=== PATIENT | male | born 2000 | race Caucasian/White ===

== ENCOUNTER 2018-10-12 11:31 | Emergency (ER) | payer OTHER, MEDICAID ==
[2018-10-12 11:40] VITALS: BP 152/84
--- NOTE | 2018-10-12 12:24 | ED Physician Documentation ---
PD HPI UPPER EXT INJURY - Stated complaint Stated Complaint: HAND INJURY - Chief complaint Chief Complaint: Ext Problem - History obtained from History obtained from: Patient, Family (Mother) - History of Present Illness Location: Right, Hand Type of injury: Blunt / blow Where injury occurred: Home Timing - onset: Yesterday - Additonal information Additional information: The patient is a 18-year-old male who accidentally banged the ulnar side of his right hand against an elliptical machine yesterday. He denies any other injuries. He is right-hand dominant. Review of Systems Skin: denies: Abrasion (s), Laceration (s) Musculoskeletal: reports: Extremity pain (right hand). denies: Neck pain Neurologic: denies: Focal weakness, Numbness PD PAST MEDICAL HISTORY - Past Surgical History Past Surgical History: No - Present Medications Home Medications: Ambulatory Orders Medication Instructions Recorded Confirmed Polymyxin B Sulf/Trimethoprim 2 drops RIGHTEYE Q3H 7 Days drops 12/03/13 [Polytrim Eye Drops] - Allergies Allergies/Adverse Reactions: Allergies Allergy/AdvReac Type Severity Reaction Status Date / Time amoxicillin [Amoxicillin] Allergy Unknown Verified 10/12/18 11:40 - Social History Does the pt smoke?: No Smoking Status: Never smoker - Immunizations Immunizations are current?: No Immunizations: Other immun not current PD ED PE NORMAL - Vitals Vital signs reviewed: Yes (hypertensive) - General General: Alert and oriented X 3, Well developed/nourished, Other - HEENT HEENT: Atraumatic - Respiratory Respiratory: No respiratory distress - Extremities Extremities: Other (There is tenderness to palpation at the ulnar aspect of the right hand. There is no appreciable swelling, and no break in the integument. Distal neurovascular is intact.) - Neuro Neuro: Alert and oriented X 3, No motor deficit, No sensory deficit Results - Vitals Vitals: Vital Signs - 24 hr 10/12/18 11:38 Temperature 36.4 C L Heart Rate 83 Respiratory 19 Rate Blood Pressure 152/84 H O2 Saturation 99 Oxygen O2 Source Room air - Rads (name of study) Right hand Radiology: Prelim report reviewed, EMP read contemporaneously, See rad report (Normal hand radiography.) PD MEDICAL DECISION MAKING - ED course Complexity details: reviewed results, re-evaluated patient, considered differential, d/w patient ED course: The patient's presentation is most consistent with contusion to the right hand. X-ray reveals no evidence of fracture or dislocation. I discussed with the patient and his mother the expected course of injury, symptomatic treatment and outpatient follow-up, as well as potentially worrisome signs or symptoms that should prompt reevaluation in the emergency department. Departure - Departure Disposition: 01 Home, Self Care Clinical Impression: Contusion of hand, right Qualifiers: Encounter type: initial encounter Qualified Code(s): S60.221A - Contusion of right hand, initial encounter Condition: Stable Instructions: ED Contusion Hand Comments: You can use ibuprofen, up to 800 mg 3 times daily for anti-inflammatory effect. Let pain be your guide to activity level. Follow-up with your primary physician or return to the emergency department if you develop increasing pain or swelling of your hand, or otherwise worsening symptoms. Discharge Date/Time: 10/12/18 13:05
--- NOTE | 2018-10-12 12:59 | XRAY Report ---
Reason: injury to ulnar side right hand Procedure Date: 10/12/2018 Accession Number: [id number] / [id number] Procedure: XR - Hand 3 View RT CPT Code: FULL RESULT: EXAM: RIGHT HAND RADIOGRAPHY EXAM DATE: 10/12/2018 12:40 PM. CLINICAL HISTORY: Right hand pain. COMPARISON: None. TECHNIQUE: 3 views. FINDINGS: Bones: Normal. No fractures or bone lesions. Joints: Normal. No subluxations. Soft Tissues: Normal. No soft tissue swelling. IMPRESSION: Normal hand radiography. RADIA
== END 2018-10-12 13:05 | disposition home or self-care (01) ==
LOC: ED 11:31
DX: S60.221A Contusion of right hand, initial encounter (principal); W22.09XA Striking against other stationary object, initial encounter; Y92.009 Unspecified place in unspecified non-institutional (private) residence as the place of occurrence of the external cause
CPT/HCPCS: 99282; 99283

== ENCOUNTER 2018-10-31 12:40 | Emergency (ER) | payer OTHER, MEDICAID ==
--- NOTE | 2018-10-31 14:04 | XRAY Report ---
Reason: fall on hip pain in troch and ishial tuber Procedure Date: 10/31/2018 Accession Number: [id number] / [id number] Procedure: XR - Hip w/Pelvis 2-3V RT CPT Code: FULL RESULT: EXAM: RIGHT HIP RADIOGRAPHY EXAM DATE: 10/31/2018 01:54 PM. CLINICAL HISTORY: Fall on hip pain in troch and ischial tuber. COMPARISON: None. TECHNIQUE: 2 views. FINDINGS: Bones: Normal. No fractures or bone lesion. Joints: Normal. No dislocation. The hip joint space is preserved. Soft Tissues: Normal. No soft tissue swelling. IMPRESSION: Normal hip radiography. RADIA
--- NOTE | 2018-10-31 14:09 | XRAY Report ---
Reason: pain over radial head Procedure Date: 10/31/2018 Accession Number: [id number] / [id number] Procedure: XR - Elbow 3 View RT CPT Code: FULL RESULT: EXAM: RIGHT ELBOW RADIOGRAPHY EXAM DATE: 10/31/2018 01:54 PM. CLINICAL HISTORY: Pain over radial head. COMPARISON: HAND 3 VIEW RT 10/12/2018 12:24 PM. TECHNIQUE: 3 views. FINDINGS: Bones: . No fractures or bone lesions. Joints: No effusion. No subluxation. Soft Tissues: No soft tissue swelling. IMPRESSION: Negative right elbow radiography. RADIA
--- NOTE | 2018-10-31 14:21 | ED Physician Documentation ---
PD HPI Fall - Stated complaint Stated Complaint: GLF/R WRIST/KNEE PX - Chief complaint Chief Complaint: Ext Problem - History obtained from History obtained from: Patient, Family - History of Present Illness Mechanism of injury: Slipped Fall distance: Standing position Where injury occurred: Home Timing - onset: Yesterday Injury(ies) location: Right Upper Extremity, Right Lower Extremity Quality of pain: Pain Associated symptoms: No: LOC, AMS, Amnesia Symptoms improve with: Rest Worsens with: Movement, Palpation Contributing factors: No: Anticoagulated Similar symptoms before: Diagnosis (sprain of wrist) Recently seen: Not recently seen - Additional information Additional information: 18-year-old male slipped and fell on a wet floor onto his right side. He complains of pain in the right shoulder right elbow right knee and right hip. He is having some limp when he walks secondary to the pain in his hip and buttocks. He does have some pain in his shoulder and elbow and he is able to move his arm up over his head. Review of Systems Constitutional: denies: Fever Ears: denies: Ear pain Nose: denies: Congestion Respiratory: denies: Cough GI: denies: Vomiting PD PAST MEDICAL HISTORY - Past Surgical History Past Surgical History: No - Present Medications Home Medications: Ambulatory Orders Medication Instructions Recorded Confirmed Polymyxin B Sulf/Trimethoprim 2 drops RIGHTEYE Q3H 7 Days drops 12/03/13 [Polytrim Eye Drops] - Allergies Allergies/Adverse Reactions: Allergies Allergy/AdvReac Type Severity Reaction Status Date / Time amoxicillin [Amoxicillin] Allergy Unknown Verified 10/12/18 11:40 Quinolones Allergy Rash Verified 10/31/18 12:53 - Social History Does the pt smoke?: No Smoking Status: Never smoker - Immunizations Immunizations are current?: No Immunizations: Other immun not current PD ED PE NORMAL - Vitals Vital signs reviewed: Yes (hypertensive ) - General General: Alert and oriented X 3, No acute distress, Well developed/nourished - HEENT HEENT: Atraumatic, PERRL, EOMI - Neck Neck: Supple, no meningeal sign, No bony TTP - Respiratory Respiratory: No respiratory distress - Derm Derm: Normal color, Warm and dry, No rash - Extremities Extremities: No deformity, No edema, Other (There is minimal tenderness to the right shoulder posteriorly. He is able to hold it in abduction and run it through a ROM without difficulty. There is pain over the radial head and with supination/pronation but not with flexion extension. There is no pain to palpation of the right wrist. The right knee is tender posteriorly minimally and the ligaments are stable to testing. There is not an obvious effusion. There is pain to the trochanter and to the ishial tuberosity. The gait favors the right leg at the hip. ) - Neuro Neuro: Alert and oriented X 3, managed care manager 2-12 intact, No motor deficit, No sensory deficit, Normal speech Eye Opening: Spontaneous Motor: Obeys Commands Verbal: Oriented GCS Score: 15 - Psych Psych: Normal mood, Normal affect Results - Vitals Vitals: Vital Signs - 24 hr 10/31/18 12:49 Temperature 36.8 C Heart Rate 83 Respiratory 18 Rate Blood Pressure 142/75 H O2 Saturation 99 Oxygen O2 Source Room air - Rads (name of study) hip Radiology: Prelim report reviewed (Impression: Normal hip radiography.), EMP read indepedently, See rad report elbow Right Radiology: Prelim report reviewed (Impression: Negative right elbow radiography.), EMP read indepedently, See rad report PD MEDICAL DECISION MAKING - ED course Complexity details: reviewed results, re-evaluated patient, considered differential, d/w patient, d/w family ED course: 18-year-old male with a fall yesterday has pain to the right side he has relatively benign physical examination and x-rays are without evidence of fracture. He is favoring his right hip area on ambulation and this is mild. He will not require splinting. Departure - Departure Disposition: 01 Home, Self Care Clinical Impression: Contusion of hip, right Qualifiers: Encounter type: initial encounter Qualified Code(s): S70.01XA - Contusion of right hip, initial encounter Contusion of elbow Qualifiers: Encounter type: initial encounter Laterality: right Qualified Code(s): S50.01XA - Contusion of right elbow, initial encounter Condition: Stable Instructions: ED Contusion Hip, ED Contusion Upper Ext Follow-Up: ASAEL URIBE MD [Primary Care Provider] -
[2018-10-31 14:28] VITALS: BP 129/73
== END 2018-10-31 14:26 | disposition home or self-care (01) ==
LOC: ED 12:40
DX: S70.01XA Contusion of right hip, initial encounter (principal); S50.01XA Contusion of right elbow, initial encounter; M25.511 Pain in right shoulder; M25.561 Pain in right knee; W01.0XXA Fall on same level from slipping, tripping and stumbling without subsequent striking against object, initial encounter; Y92.009 Unspecified place in unspecified non-institutional (private) residence as the place of occurrence of the external cause
CPT/HCPCS: 99282; 99284

== ENCOUNTER 2019-10-17 10:45 | Emergency (ER) | payer MEDICAID, OTHER ==
[2019-10-17 11:11] VITALS: BP 151/68
--- NOTE | 2019-10-17 11:31 | XRAY Report ---
PROCEDURE: Knee 4 View LT INDICATIONS: injury to left knee by boat crank TECHNIQUE: 4 views of the left knee(s) were acquired. COMPARISON: None. FINDINGS: Bones: No fractures or dislocations. No suspicious bony lesions. Soft tissues: No joint effusion. No suspicious soft tissue calcifications. IMPRESSION: No fracture. If the patient's pain or other symptoms persist, consider further evaluatio n with MRI. Reviewed by: Srikanth Doherty MD on 10/17/2019 11:30 AM PDT Approved by: Srikanth Doherty MD on 10/17/2019 11:30 AM PDT Station ID: [id number]
--- NOTE | 2019-10-17 12:10 | ED Physician Documentation ---
History of Present Illness - Stated complaint Stated Complaint: LT KNEE PX - Chief complaint Chief Complaint: Ext Problem - Additonal information Additional information: 19-year-old male here with left knee pain. Approximately 1 week ago he was hit in the lower thigh just above the knee with a boat crank that released suddenly. In the moment patient had sharp pain but then it went away. He did not develop pain in the area for approximately 3 days. He has a normal gait. He has had no swelling or ecchymosis. No history of previous injury to this knee or left leg Review of Systems Constitutional: denies: Fever, Chills Nose: denies: Congestion, Epistaxis Throat: denies: Oral lesions / sores, Sore throat Cardiac: denies: Chest pain / pressure, Palpitations, Pedal edema, Calf pain Respiratory: denies: Dyspnea, Cough GI: denies: Abdominal Pain, Abdominal Swelling, Nausea, Vomiting : denies: Dysuria Skin: denies: Rash, Abrasion (s) Musculoskeletal: reports: Joint pain. denies: Neck pain, Back pain, Joint swelling, Pain with weight bearing Neurologic: denies: Generalized weakness, Focal weakness, Numbness, Syncope, Seizure, Confused PD PAST MEDICAL HISTORY - Past Surgical History Past Surgical History: No - Present Medications Home Medications: Ambulatory Orders Medication Instructions Recorded Confirmed Ibuprofen [Motrin] 600 mg PO Q8H PRN #30 tab 10/17/19 - Allergies Allergies/Adverse Reactions: Allergies Allergy/AdvReac Type Severity Reaction Status Date / Time amoxicillin [Amoxicillin] Allergy Unknown Verified 10/17/19 11:00 Quinolones Allergy Rash Verified 10/17/19 11:00 ciprofloxacin [From Cipro] AdvReac Unknown Verified 10/17/19 11:01 - Social History Does the pt smoke?: No Smoking Status: Never smoker - Immunizations Immunizations are current?: No Immunizations: Other immun not current PD ED PE NORMAL - General General: Alert and oriented X 3, No acute distress, Well developed/nourished - Extremities Extremities: No deformity, Normal ROM s pain, No edema. No: No tenderness to palpate (mild tenderness just above knee at the patellar insertion point. no swelling, ecchymosis. no laxity. normal flexion/extension. no altered gait) Results - Vitals Vitals: Vital Signs - 24 hr 10/17/19 10:51 Temperature 36.9 C Heart Rate 99 Respiratory 18 Rate Blood Pressure 151/68 H O2 Saturation 97 Oxygen O2 Source Room air PD MEDICAL DECISION MAKING - ED course Complexity details: reviewed results, considered differential, d/w patient, d/w family ED course: 19-year-old male here for evaluation of just above the left knee at a point where he was hit by a boat crank nearly 1 week ago. On exam he has very mild tenderness just at the insertion point of the patella tendon. There is no laxity of the joint. There is no effusion. He has a normal gait. X-rays do not show any acute osseous injury. My suspicion favors contusion versus contusion of the tendon. Patient was given a 4 inch Reese wrap and reported improved pain control. I do recommend RICE precautions for the next 4 to 5 days. Follow-up with primary care doctor Departure - Departure Disposition: 01 Home, Self Care Clinical Impression: Left knee pain Qualifiers: Chronicity: acute Qualified Code(s): M25.562 - Pain in left knee Condition: Stable Record reviewed to determine appropriate education?: Yes Prescriptions: Ibuprofen [Motrin] 600 mg PO Q8H PRN #30 tab PRN Reason: Pain Comments: Chirag the x-ray of your knee is essentially normal. I suspect that you either bruised or contused the lower part of your muscle or tendon that inserts into the knee. At this time I would recommend that you wear the Reese wrap when you are out of bed for the next 4 to 5 days. I do also recommend a short course of an NSAID medication such as ibuprofen. I have prescribed this medication. Please return to the emergency department if you develop knee swelling, have knee redness, and inability to bear weight on the leg or you feel that your symptoms are not improved.
== END 2019-10-17 12:33 | disposition home or self-care (01) ==
LOC: ED 10:45
DX: M25.562 Pain in left knee (principal)
CPT/HCPCS: 99282; 99283

== ENCOUNTER 2019-12-06 12:54 | Outpatient (CLI) | payer MEDICAID ==
[2019-12-06] MEDS ORDERED: GADOBUTROL 10 MMOL/10 ML VIAL ONE (13:20)
--- NOTE | 2019-12-06 14:22 | MRI Report ---
PROCEDURE: Cervical Spine W/O INDICATIONS: INJURY OF PERIPHERAL NERVES OF NECK TECHNIQUE: Noncontrast sagittal T1 spin echo and T2 fast spin echo, sagittal STIR, foraminal oblique sagittal T2 fast spin echo, and axial gradient echo or T2 fast spin echo through the cervical spine. COMPARISON: None. FINDINGS: Image quality: Excellent. Alignment and Curvature: Normal cervical spine vertebral body height and alignment. Bone Marrow: No suspicious focal marrow signal abnormality or bone marrow edema. Spinal Cord: Normal morphology and signal intensity of the cervical cord. There is no syrinx. No infe rior cerebellar tonsillar herniation. Regional Soft Tissues: Prevertebral and paraspinous tissues are unremarkable. C2-C3: Normal in appearance. C3-C4: Normal in appearance. C4-C5: Normal in appearance. C5-C6: Normal in appearance. C6-C7: Normal in appearance. C7-T1: Normal in appearance. IMPRESSION: Normal MRI of the cervical spine. No spinal canal stenosis, neural foraminal stenosis, degenerative c hanges, or cord signal abnormality. Reviewed by: Chris Weston MD on 12/06/2019 2:20 PM PDT Approved by: Chris Weston MD on 12/06/2019 2:20 PM PDT Station ID: [id number]
== END 2019-12-06 12:55 | disposition home or self-care (01) ==
LOC: DI 12:54
PROVIDERS: ATTEND Nurse Practitioner Family
DX: S19.9XXA Unspecified injury of neck, initial encounter (principal)
CPT/HCPCS: 72141

== ENCOUNTER → 2020-03-27 | Outpatient (CLI) | payer MEDICAID ==
[2020-03-27 11:28] LABS: ALBUMIN 4.6 g/dL (3.2-5.5); ALBUMIN/GLOBULIN RATIO 1.4 (1.0-2.2); ALKALINE PHOSPHATASE 82 IU/L (42-121); ALT ALANINE AMINOTRANSFERASE 30 IU/L (10-60); AST ASPARTATE AMINOTRANSFERASE 22 IU/L (10-42); BILIRUBIN,TOTAL 0.9 mg/dL (0.2-1.0); BUN - BLOOD UREA NITROGEN 11 mg/dL (6-20); CALCIUM 10.2 mg/dL (8.5-10.3); CARBON DIOXIDE - CO2 27 mmol/L (21-32); CHLORIDE 100 mmol/L (101-111); CHOL/HDL RATIO 3.4 (<5.0); CHOLESTEROL 164 mg/dL; CREATININE 0.8 mg/dL (0.6-1.2); GLUCOSE 97 mg/dL (70-100); HDL CHOLESTEROL 48 mg/dL; LDL CHOLESTEROL,CALCULATED 99 mg/dL; LDL/HDL RATIO 2.1 (<3.6); TOTAL PROTEIN 7.9 g/dL (6.7-8.2); VLDL CHOLESTEROL 17 mg/dL
== END ==
LOC: LAB 08:00
PROVIDERS: ATTEND Nurse Practitioner Family
DX: R10.13 Epigastric pain (principal); E66.09 Other obesity due to excess calories
CPT/HCPCS: 36415; 80053; 80061; 83721

== ENCOUNTER 2020-06-05 11:37 | Emergency (ER) | payer OTHER, MEDICAID ==
[2020-06-05] MEDS ORDERED: IBUPROFEN 600 MG TABLET PO STA (12:02)
--- NOTE | 2020-06-05 12:04 | ED Physician Documentation ---
History of Present Illness - Stated complaint Stated Complaint: BACK PX - Chief complaint Chief Complaint: Back Pain - Additonal information Additional information: 20-year-old male presents the emergency department for evaluation of low back pain. 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 He does not remember any inciting event at work but this morning when he woke up and moved he had a lot of pain in the lower back. He reports pain was so bad that he vomited. He has no fevers, no saddle anesthesia. No history of cancer or injection drug use or previous spinal instrumentation. He has not taken anything for pain. Here in the emergency department he appears well and has a normal gait. Review of Systems Constitutional: denies: Fever, Chills Eyes: reports: Reviewed and negative Ears: reports: Reviewed and negative Nose: reports: Reviewed and negative Throat: reports: Reviewed and negative Cardiac: reports: Reviewed and negative Respiratory: reports: Reviewed and negative GI: reports: Vomiting. denies: Abdominal Pain, Abdominal Swelling, Nausea : reports: Reviewed and negative Skin: reports: Reviewed and negative Musculoskeletal: reports: Back pain Neurologic: reports: Reviewed and negative Psychiatric: reports: Reviewed and negative PD PAST MEDICAL HISTORY - Past Surgical History Past Surgical History: No - Present Medications Home Medications: Ambulatory Orders Medication Instructions Recorded Confirmed Ibuprofen [Motrin] 600 mg PO Q6H PRN #30 tab 06/05/20 - Allergies Allergies/Adverse Reactions: Allergies Allergy/AdvReac Type Severity Reaction Status Date / Time amoxicillin [Amoxicillin] Allergy Unknown Verified 06/05/20 11:46 Quinolones Allergy Rash Verified 06/05/20 11:46 ciprofloxacin [From Cipro] AdvReac Unknown Verified 06/05/20 11:46 - Social History Does the pt smoke?: No Smoking Status: Never smoker - Immunizations Immunizations are current?: No Immunizations: Other immun not current PD ED PE EXPANDED - General General: Alert, No acute distress, Well developed/nourished - Back Back: Soft tissue tenderness. No: Vertebral tenderness, Straight leg raise + R, Straight leg raise + L (Bilateral lower paraspinous tenderness to palpation without palpable spasm. No swelling or erythema. Full range of motion of lower lumbar spine. Normal gait. motor strength 5/5 BLE. able to walk on heels and toes) Results - Vitals Vitals: Vital Signs - 24 hr 06/05/20 11:43 Temperature 36.7 C Heart Rate 58 L Respiratory 16 Rate Blood Pressure 159/82 H O2 Saturation 98 Oxygen O2 Source Room air PD MEDICAL DECISION MAKING - ED course Complexity details: reviewed results, re-evaluated patient, d/w patient, d/w family ED course: 20-year-old male who has a history of autism presents emergency department with lower lumbar pain after carrying heavy boxes in janitorial supplies up and down stairs yesterday afternoon. He has no red flags. On exam he is mildly tender in bilateral lower lumbar spinous muscles. He has normal gait and full lower lumbar range of motion. I do recommend NSAID medication. I have filled out the activity prescription form and the appropriate labor and industries paperwork was also completed. Patient is recommended to follow-up with the [facility] for full return to duty evaluation Departure - Departure Disposition: 01 Home, Self Care Clinical Impression: Acute lumbar myofascial strain Qualifiers: Encounter type: initial encounter Qualified Code(s): S39.012A - Strain of muscle, fascia and tendon of lower back, initial encounter Condition: Stable Record reviewed to determine appropriate education?: Yes Instructions: ED Sprain Strain Lumbar Follow-Up: [facility] [Provider Group] Prescriptions: Ibuprofen [Motrin] 600 mg PO Q6H PRN #30 tab PRN Reason: Pain Comments: Chirag was seen in the emergency department today for evaluation of low back pain after carrying heavy supplies up and down stairs yesterday afternoon. As we discussed I suspect that he has strain or sprain of the lower lumbar muscles. Would like him to take the ibuprofen with food 2-3 times a day for the next 4 to 5 days. I have written for a modified duty prescription that limits his lifting to no more than 5 pounds until he is pain-free. I would like him to follow-up with [facility] within 1 week for full return to duty prescription form. If at any point he has suddenly severe or different pain, loses control of bowel or bladder function I feel the symptoms are not improving please return to the emergency department for a second evaluation.
[2020-06-05 12:43] VITALS: BP 143/75
== END 2020-06-05 12:49 | disposition home or self-care (01) ==
LOC: ED 11:37
DX: S39.012A Strain of muscle, fascia and tendon of lower back, initial encounter (principal); X50.0XXA Overexertion from strenuous movement or load, initial encounter; Y93.89 Activity, other specified; Y99.0 Civilian activity done for income or pay
CPT/HCPCS: 1040M; 99282; 99283; A9270

== ENCOUNTER 2020-06-10 15:05 | Emergency (ER) | payer OTHER, MEDICAID ==
--- OUTSIDE RECORDS SUMMARY | 2020-06-10 15:08 | EXTERNAL MEDICAL SUMMARY RPT | Continuity of Care Document ---
:2000 Demographics Phone Unavailable Preferred Language Unknown Marital Status Unknown Jewish Affiliation Unknown Race Unknown Ethnic Group Unknown Author Organization [facility] Address [address] [place] [address] Phone Social History date description facility [id number]
[2020-06-10] MEDS ORDERED: DEXAMETHASONE 10 MG/ML VIAL PO STA (15:39)
--- NOTE | 2020-06-10 15:44 | ED Physician Documentation ---
PD HPI BACK PAIN - Stated complaint Stated Complaint: BACK PX - Chief complaint Chief Complaint: Back Pain - History obtained from History obtained from: Patient - History of Present Illness Timing - onset: How many days ago (3) Timing - duration: Days (3) Timing - details: Gradual onset Pain level max: 1 Pain level now: 1 Location: Lower Associated symptoms: No: Fever, Weakness, Numbness, Incontinent of urine, Unable to urinate, Hematuria, Incontinent of stool Improves with: Rest Worsened by: Other (standing) Contributing factors: No: Trauma, Anticoagulated, Cancer, IVDA Recently seen: Emergency Dept - Additional information Additional information: Patient is a 20-year-old male who injured his back 3 days ago. He states that now when he stands up he gets a tingling sensation in his back. Rates the pain as a 1 out of 10. He states that he strained his back lifting at work. Better with rest, worse with standing. No IV drug use. No trauma. No cancer. Not anticoagulated. Recently seen in the emergency department after the initial injury. Review of Systems Constitutional: denies: Fever, Chills Respiratory: denies: Cough GI: denies: Vomiting : denies: Incontinent Skin: denies: Rash Musculoskeletal: denies: Neck pain Neurologic: denies: Focal weakness, Numbness PD PAST MEDICAL HISTORY - Past Medical History Past Medical History: Yes Cardiovascular: None Respiratory: None Neuro: Head injury Endocrine/Autoimmune: None GI: None : None HEENT: None Psych: None Musculoskeletal: None Derm: None - Past Surgical History Past Surgical History: No - Present Medications Home Medications: Ambulatory Orders Medication Instructions Recorded Confirmed Methylprednisolone [Medrol] 4 mg PO DAILY #1 06/10/20 - Allergies Allergies/Adverse Reactions: Allergies Allergy/AdvReac Type Severity Reaction Status Date / Time amoxicillin [Amoxicillin] Allergy Unknown Verified 06/10/20 15:07 Quinolones Allergy Rash Verified 06/10/20 15:07 ciprofloxacin [From Cipro] AdvReac Unknown Verified 06/10/20 15:07 - Social History Does the pt smoke?: No Smoking Status: Never smoker Does the pt drink ETOH?: Yes Does the pt have substance abuse?: No - Immunizations Immunizations are current?: No Immunizations: Other immun not current PD ED PE NORMAL - Vitals Vital signs reviewed: Yes - General General: Alert and oriented X 3, No acute distress - HEENT HEENT: Moist mucous membranes - Neck Neck: Supple, no meningeal sign - Cardiac Cardiac: RRR, Strong equal pulses - Respiratory Respiratory: No respiratory distress, Clear bilaterally - Abdomen Abdomen: Soft, Non tender, Non distended - Back Back: No spinal TTP (No midline tenderness palpation or percussion. No step-off or deformity.) - Derm Derm: Warm and dry - Extremities Extremities: No edema, No calf tenderness / cord - Neuro Neuro: Alert and oriented X 3, No motor deficit, No sensory deficit, Other (Normal bilateral lower extremity patellar and ankle jerk reflexes. Normal great toe extension bilaterally. no saddle anesthesia) Results - Vitals Vitals: Vital Signs - 24 hr 06/10/20 06/10/20 15:08 15:53 Temperature 37.2 C 36.9 C Heart Rate 76 65 Respiratory 18 16 Rate Blood Pressure 152/83 H 149/73 H O2 Saturation 99 99 Oxygen O2 Source Room air PD MEDICAL DECISION MAKING - ED course Complexity details: reviewed results, re-evaluated patient, considered differential (No cauda equina, no spinal epidural abscess, no fracture, no aortic dissection or evidence of aneursym rupture), d/w patient, d/w family ED course: Patient with what appears to be mild sciatica. Will place on a steroid taper in addition to the Motrin he is currently on. We will have him follow-up with his doctor for further care. No evidence of cauda equina, epidural abscess. No evidence of fracture. No indication for x-rays at this time. Patient is ambulating with a normal gait in the emergency department. Patient and family counseled regarding signs and symptoms for which I believe and urgent re- evaluation would be necessary. Patient with good understanding of and agreement to plan and is comfortable going home at this time This document was made in part using voice recognition software. While efforts are made to proofread this document, sound alike and grammatical errors may occur. Departure - Departure Disposition: 01 Home, Self Care Clinical Impression: Sciatica Qualifiers: Laterality: bilateral Qualified Code(s): M54.31 - Sciatica, right side Condition: Good Instructions: ED Sciatica Follow-Up: ANA DIOP ARNP [Primary Care Provider] - Within 1 week Prescriptions: Methylprednisolone [Medrol] 4 mg PO DAILY #1 Comments: Use the Medrol Dosepak as prescribed. Follow-up with your doctor for further care. Return if you worsen. Continue to gently stretch her back. Ice may help as well. Discharge Date/Time: 06/10/20 15:54
--- OUTSIDE RECORDS SUMMARY | 2020-06-10 15:48 | EXTERNAL MEDICAL SUMMARY RPT | Continuity of Care Document ---
:2000 Demographics Phone Unavailable Preferred Language Unknown Marital Status Unknown Shinto Affiliation Unknown Race Unknown Ethnic Group Unknown Author Organization [facility] Address [address] [id number] Phone Social History date description facility [id number]
[2020-06-10 15:54] VITALS: BP 149/73
== END 2020-06-10 15:54 | disposition home or self-care (01) ==
LOC: ED 15:05
DX: M54.41 Lumbago with sciatica, right side (principal)
CPT/HCPCS: 99282; 99284

== ENCOUNTER 2022-12-27 11:00 | Emergency (ER) | payer MEDICAID ==
[2022-12-27 11:14] VITALS: BP 151/73; O2SAT 100
--- NOTE | 2022-12-27 11:41 | XRAY Report ---
PROCEDURE: Ankle 3 View RT INDICATIONS: Trauma TECHNIQUE: 3 views of the ankle were acquired. COMPARISON: None FINDINGS: Bones: No fractures or dislocations. Ankle mortise is normally aligned. No suspicious bony lesions . Soft tissues: Lateral soft tissue swelling. No radiopaque foreign body. IMPRESSION: Soft tissue swelling without fracture or foreign body Reviewed by: Abebe Chung MD on 12/27/2022 10:40 AM [facility] Approved by: Abebe Chung MD on 12/27/2022 10:40 AM [facility] Station ID: [id number]
--- NOTE | 2022-12-27 12:00 | ED Physician Documentation ---
History of Present Illness - Stated complaint Stated Complaint: RT LEG INJ - Chief complaint Chief Complaint: Trauma Ext - Additonal information Additional information: 22-year-old male here for acute right ankle injury. Reports rolling the ankle inversion injury yesterday evening when [place] st[place]. No falls no other trauma. No history of previous injury to this foot though patient's mom reports he has a history of a partial nonfusion of one of the lateral metatarsal bones. He has been ambulatory. Review of Systems Musculoskeletal: reports: Joint pain PD PAST MEDICAL HISTORY - Past Medical History Past Medical History: Yes Cardiovascular: None Respiratory: None Neuro: Head injury, Other Endocrine/Autoimmune: None GI: None : None HEENT: None Psych: None Musculoskeletal: None Derm: None Other Past Medical History: tics, vocal and physical. autism - Past Surgical History Past Surgical History: No - Present Medications Home Medications: Ambulatory Orders Medication Instructions Recorded Confirmed No Known Home Medications 12/27/22 12/27/22 - Allergies Allergies/Adverse Reactions: Allergies Allergy/AdvReac Type Severity Reaction Status Date / Time amoxicillin [Amoxicillin] Allergy Unknown Verified 06/10/20 15:07 Quinolones Allergy Rash Verified 06/10/20 15:07 ciprofloxacin [From Cipro] AdvReac Unknown Verified 06/10/20 15:07 - Social History Does the pt smoke?: No Smoking Status: Never smoker Does the pt drink ETOH?: Yes Does the pt have substance abuse?: No - Immunizations Immunizations are current?: No Immunizations: Other immun not current PD ED PE NORMAL - Extremities Extremities: Other (Eat please mild swelling without ecchymosis of the right lateral malleolus. Full range of motion of the ankle. Normal dorsi and plantarflexion. No pain elicited at the base of the fifth metatarsal. Mild tenderness elicited at the base of the lateral malleoli region.) Results - Vitals Vitals: Vital Signs - 24 hr 12/27/22 11:03 Temperature 36.7 C Heart Rate 74 Respiratory 16 Rate Blood Pressure 151/73 H O2 Saturation 100 Oxygen O2 Source Room air - Rads (name of study) right ankle Relevant Findings:: Final report received (Soft tissue swelling without fracture or foreign body.) PD Medical Decision Making - ED course Complexity details: reviewed results, re-evaluated patient, d/w patient, d/w family ED course: 20-year-old male here for acute right ankle injury sustained when he had an inversion rolling injury yesterday evening. He has been ambulatory. Mild swelling without ecchymosis. No pain at the base of the fifth metatarsal. Most of the tenderness is elicited at the base of the lateral malleolus. X-ray is interpreted by radiology as negative. Patient placed in an Aircast splint given crutches. Routine care/RICE precautions discussed. Advise follow-up with PCP in 1 week if not markedly improved for repeat imaging to rule out occult f racture. Departure - Departure Disposition: 01 Home, Self Care Clinical Impression: Right ankle sprain Qualifiers: Encounter type: initial encounter Involved ligament of ankle: unspecified ligament Qualified Code(s): S93.401A - Sprain of unspecified ligament of right ankle, initial encounter Condition: Stable Instructions: ED Sprain Ankle Comments: The x-ray of your ankle does not show a broken bone. I suspect that you sprained the ankle or stretch the ligaments when you rolled your foot yesterday evening. Over the next week or so would like you to wear the air splint when out of bed and use the crutches to aid in ambulation. With most gentle sprains symptoms improve markedly over 7 to 10 days. If not markedly better and able to bear full weight with improving pain after about a week the ankle should be jose- rayed to rule out an occult fracture. In general he can take Tylenol or ibuprofen [id number] for discomfort.
== END 2022-12-27 12:30 | disposition home or self-care (01) ==
LOC: ED 11:00
DX: S93.401A Sprain of unspecified ligament of right ankle, initial encounter (principal); X50.1XXA Overexertion from prolonged static or awkward postures, initial encounter
CPT/HCPCS: 99283